=== PATIENT | male | born 1995 | race Caucasian/White ===

== ENCOUNTER 2021-11-16 10:48 | Outpatient (REF) | payer OTHER, SELFPAY ==
[2021-11-16 14:29] LABS: Alanine Aminotransferase 18 U/L (0-40); Albumin Level 4.6 g/dL (3.5-5.0); Alkaline Phosphatase 71 U/L (39-117); Anion Gap 12 (12-20); Aspartate Amino Transferase 21 U/L (5-37); Bilirubin Total 1.1 mg/dL (0.0-1.0); Blood Urea Nitrogen 13 mg/dL (9-16); Calcium 9.7 mg/dL (8.4-10.2); Carbon Dioxide 26 mmol/L (22-29); Chloride 105 mmol/L (96-108); Cholesterol 196 mg/dL; Estimated Glomerular Filt Rate > 60; Glucose Fasting 92 mg/dL (60-99); HDL Cholesterol 49 mg/dL; LDL Cholesterol Calculated 131 mg/dl; Potassium 4.2 mmol/L (3.3-5.1); Sodium 139 mmol/L (135-145); Total Protein 7.4 g/dL (6.5-8.0); Triglycerides 84 mg/dL
[2021-11-16 14:50] LABS: TSH reflex Free T4 1.26 uIU/mL (0.32-4.0)
== END 2021-11-16 10:49 | disposition home or self-care (01) ==
LOC: HO.WFDLDS 10:48
PROVIDERS: Visit Provider Family Medicine
DX: Z00.00 Encounter for general adult medical examination without abnormal findings (principal)
CPT/HCPCS: 36415; 80053; 80061; 84443

== ENCOUNTER 2022-01-16 16:30 | Outpatient (REF) | payer OTHER, SELFPAY ==
--- NOTE | ~2022-01-16 | US_ITS ---
EXAMINATION: US ABDOMEN LIMITED CLINICAL INFORMATION: Localized swelling, mass and lump, unspecified. COMPARISON: None TECHNIQUE: Real-time imaging of the area to the right of the xiphoid process. FINDINGS: Ultrasound imaging of area to the right of the xiphoid process reveals a solid hypoechoic lesion measuring 1.0 x 1.1 x 0.5 cm. No cystic consistency seen. It has the same echotexture as subcutaneous fat and likely represents a small lipoma. It does not have lymph node characteristics but an atypical lymph node cannot be excluded. No additional lesion seen. US/US abdomen limited IMPRESSION: Likely a small lipoma right of xiphoid. Differential diagnosis includes a small lymph node.
== END 2022-01-16 16:31 | disposition home or self-care (01) ==
LOC: HO.US 16:30
PROVIDERS: Visit Provider Family Medicine
DX: R19.00 Intra-abdominal and pelvic swelling, mass and lump, unspecified site (principal)
CPT/HCPCS: 76705